=== PATIENT | male | born 1975 | race Caucasian/White ===

== ENCOUNTER 2021-05-31 07:57 | Emergency (ER) | payer OTHER ==
[2021-05-31 08:36] LABS: HEMOGLOBIN 16.5 gm/dl (14.0-17.5); RED BLOOD COUNT 5.52 M/UL (4.20-5.50); WHITE BLOOD COUNT 5.9 K/UL (4.5-11.0)
[2021-05-31 09:03] LABS: BUN/CREATININE RATIO 8 (0-10)
[2021-05-31] MEDS ORDERED: OMEPRAZOLE40 MG PO (11:34)
== END 2021-05-31 12:02 | disposition home or self-care (01) ==
LOC: ER1 07:57
PROVIDERS: Family Medicine
DX: R07.81 Pleurodynia (principal); I10 Essential (primary) hypertension; Z20.822 Contact with and (suspected) exposure to COVID-19
CPT/HCPCS: 71045; 80053; 82550; 82553; 83874; 83880; 84484; 85025; 85379; 93005; 99284; U0002

== ENCOUNTER 2021-10-24 23:16 | Emergency (ER) | payer OTHER ==
[~2021-10-24 23:16] MED LIST: OMEPRAZOLE40 MG PO
== END 2021-10-25 01:09 | disposition left against medical advice (07) ==
LOC: ER1 23:16
DX: R11.10 Vomiting, unspecified (principal); R10.9 Unspecified abdominal pain
CPT/HCPCS: 93005; 99281